=== PATIENT | male | born 2000 | race Caucasian/White ===

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

== ENCOUNTER 2021-02-23 20:44 | Emergency (ER) | payer OTHER ==
[~2021-02-23] VITALS: Ht 182.9 cm; Wt 65.8 kg
[~2021-02-23 20:44] MED LIST changes: +ADDERALL 10 MG10 MG PO; +LAMOTRIGINE250 MG PO; +LEXAPRO20 MG PO; +RISPERDAL0.5 MG PO
[2021-02-23] MEDS ORDERED: [UNRECOGNIZED DRUG - OTHER] IV (20:52)
[2021-02-23 21:39] VITALS: BP 116/78
== END 2021-02-23 21:39 | disposition home or self-care (01) ==
LOC: M.ERS 20:44
DX: S61.210A Laceration without foreign body of right index finger without damage to nail, initial encounter (principal); F32.9 Major depressive disorder, single episode, unspecified; Z79.899 Other long term (current) drug therapy; F41.9 Anxiety disorder, unspecified; W22.8XXA Striking against or struck by other objects, initial encounter; Y92.89 Other specified places as the place of occurrence of the external cause; Y99.8 Other external cause status; Y93.89 Activity, other specified